=== PATIENT | female | born 1960 | race Caucasian/White ===

== ENCOUNTER → 2016-11-06 | Outpatient (CLI) | payer OTHER ==
[~2016-11-06] MED LIST: ADVI200T PO; ARTISOL10 OU; ATOR1TAB19 PO; AUGM875T27 PO; BACT800T5 PO; FISH1000 PO; TYLE1TAB5 PO; VITA10002 PO; VITA400C29 PO
--- NOTE | 2016-11-07 02:07 | REP ---
Clinical: Neck pain with recent trauma/injury. Technique: AP, lateral, flexion/extension, bilateral oblique, and open-mouth views of the cervical spine. Comparison: None. Findings: Moderate/advanced degenerative disc osteophyte complexes primarily involving C6-7, C5-6, and C4-5 include osteophytosis, endplate sclerosis with disc space narrowing, and hypertrophic facet changes. There is evidence for 2.5 mm anterolisthesis at the C7-T1 level which appears relatively unchanged on flexion and extension views. No acute fracture or compression injury identified. Open mouth view demonstrates normal C1-C2 articulation and odontoid process. Prevertebral soft tissues appear normal. Spinous processes appear intact. Impression: Moderate to advanced degenerative disc osteophyte complexes as noted above including grade 1 anterolisthesis at the C7-T1 level. Signed by Fran Espinal MD 11/07/2016 01:58 A
== END ==
LOC: M WUC 16:16
PROVIDERS: ATTEND Physician Assistant Medical
DX: M25.78 Osteophyte, vertebrae (principal); M50.93 Cervical disc disorder, unspecified, cervicothoracic region

== ENCOUNTER → 2016-11-17 | Outpatient (CLI) | payer BC, OTHER ==
--- NOTE | 2016-11-17 11:07 | REP ---
CT BRAIN WITHOUT CONTRAST: 11/17/2016. Clinical history: Head trauma 11/06/2016. Evaluate for intracranial hemorrhage or other. Technique: Noncontrast soft tissue and bone windows were provided. Findings: There are no comparison studies. The lateral ventricles are midline and symmetric without dilatation or displacement. Third and fourth ventricles are also unremarkable. Basal ganglia symmetric and normal. White matter tracts preserved. The cortical stripe was unremarkable. There is no extra-axial hemorrhage or intraparenchymal bleed. No vascular territory infarct, mass or mass effect. Brainstem unremarkable. Cerebellum with minimal atrophy. Basal cisterns intact. Mastoids and visualized sinuses were clear. The calvarium and skull base are without fracture. I do not see focal bone lesion. Some minor asymmetric soft tissue thickening right posterior occiput compared to left which suggests subgaleal hematoma. Impression: 1. There is no intracranial hemorrhage, edema, mass or acute infarct. No fracture of the skull base or calvarium and the sinuses and mastoids are clear.2. Minor swelling of the soft tissues right-sided posterior occipital region, likely a small subgaleal scalp hematoma. Signed by Satish Fernandes MD 11/17/2016 04:41 P
== END ==
LOC: M RAD 08:15
PROVIDERS: ATTEND Physician Assistant Medical
DX: S09.90XD Unspecified injury of head, subsequent encounter (principal); X58.XXXA Exposure to other specified factors, initial encounter; Y92.9 Unspecified place or not applicable; Y93.9 Activity, unspecified; Y99.9 Unspecified external cause status

== ENCOUNTER → 2016-12-21 | Outpatient (REF) | payer OTHER ==
[2016-12-21 10:57] LABS: MEAN CORPUSCULAR HEMOGLOBIN 32.5 pg (27.0-33.0); MEAN CORPUSCULAR HGB CONC 34.3 g/dl (32.0-36.5); MEAN CORPUSCULAR VOLUME 94.7 fl (80.0-96.0); WHITE BLOOD COUNT 2.9 K/mm3 (4.0-10.0)
[2016-12-21 11:26] LABS: BASOPHILS 3 % (0-4); EOSINOPHILS 1 % (0-5)
[2016-12-21 11:28] LABS: ALBUMIN 4.3 GM/DL (3.2-5.2); ALBUMIN/GLOBULIN RATIO 1.39 (1.00-1.93); ALKALINE PHOSPHATASE 58 U/L (45-117); ALT/SGPT 29 U/L (12-78); ANION GAP 8 MEQ/L (8-16); AST/SGOT 18 U/L (15-37); BILIRUBIN,TOTAL 0.4 MG/DL (0.2-1.0); BLOOD UREA NITROGEN 11 MG/DL (7-18); CALCIUM LEVEL 8.9 MG/DL (8.5-10.1); CARBON DIOXIDE LEVEL 30 MEQ/L (21-32); CHLORIDE LEVEL 105 MEQ/L (98-107); CHOLESTEROL LEVEL 174 MG/DL (<200); CREATININE FOR GFR 0.72 MG/DL (0.55-1.02); FREE T4 0.86 NG/DL (0.76-1.46); GLOMERULAR FILTRATION RATE > 60.0 (>51); GLUCOSE, FASTING 90 MG/DL (70-105); POTASSIUM SERUM 4.3 MEQ/L (3.5-5.1); SODIUM LEVEL 143 MEQ/L (136-145); TOTAL PROTEIN 7.4 GM/DL (6.4-8.2); TRIGLYCERIDES LEVEL 89 MG/DL (<150)
[2016-12-22 09:29] LABS: THYROID PEROXIDASE ANTIBODY < 28.0 U/ML (<60.0)
== END ==
LOC: M SFHCPLAZ 08:38
PROVIDERS: ATTEND Family Medicine
DX: D72.819 Decreased white blood cell count, unspecified (principal); E55.9 Vitamin D deficiency, unspecified; E78.5 Hyperlipidemia, unspecified

== ENCOUNTER → 2017-01-11 | Outpatient (CLI) | payer BC, OTHER ==
--- NOTE | 2017-01-15 10:53 | DEXA ---
AP SPINE L1 - L4 1.219 0.2 0.9 LT FEMUR TOTAL 0.975 -0.3 0.3 RT FEMUR TOTAL 1.017 0.1 0.6 TOTAL BODY TOTAL OTHER DUAL FEMUR FRAX* ASSESSMENT Risk factors: None. 10 year probability of fracture Major osteoporotic fracture 7.1 % Hip fracture 0.5 % COMMENTS: Normal bone densitometry of the spine. Normal bone densitometry of the right hip. There is low bone density of the left hip, low bone density based on femoral neck T score -1.2 left. There is degenerative change in the spine which may artificially elevate the BMD. The increased density of the spine does represent a significant change since . The increased density of the left hip does represent a significant change since 11/05/2013. The increased density of the right hip does represent a significant change. The density of the spine has decreased 4.0% since the initial exam on 2008. The spine density has increased 10.3% since the most recent exam on 11/05/2013. The density of the left hip has decreased 3.9% since the initial exam on 2008. The density of the left hip has increased 6.3% since the most recent exam on . The density of the right hip has decreased 6.1% since the initial exam on 2008. The density of the right hip has increased 5.1% since the most recent exam on . FOLLOW-UP: Recommendation for the next bone density exam: 2 years. MARIUSZ
== END ==
LOC: M WHC 11:25
PROVIDERS: ATTEND Family Medicine
DX: M85.80 Other specified disorders of bone density and structure, unspecified site (principal)

== ENCOUNTER → 2017-12-24 | Outpatient (REF) | payer BC ==
[2017-12-24 13:21] LABS: BASO % 0.9 % (0.0-1.0); EOS # 0.1 10^3/uL (0.0-0.50); EOS % 1.4 % (0.0-3.0); HEMOGLOBIN 13.3 g/dl (12.0-16.0); IMMATURE GRANULOCYTE % 0.2 % (0-3.0); LYMPH # 1.8 10^3/uL (1.5-4.5); LYMPH % 39.9 % (24.0-44.0); MEAN CORPUSCULAR HEMOGLOBIN 32.8 pg (27.0-33.0); MEAN CORPUSCULAR HGB CONC 34.1 g/dl (32.0-36.5); MEAN CORPUSCULAR VOLUME 96.1 fl (80.0-96.0); MONO # 0.2 10^3/uL (0.0-0.8); MONO % 5.2 % (0.0-5.0); NEUTROPHILS # 2.3 10^3/uL (1.8-7.7); NEUTROPHILS % 52.4 % (36.0-66.0); PLATELET COUNT, AUTOMATED 139 10^3/uL (150-450); RED BLOOD COUNT 4.06 10^6/uL (4.00-5.40); RED CELL DISTRIBUTION WIDTH 12.2 % (11.5-14.5); WHITE BLOOD COUNT 4.4 10^3/uL (4.0-10.0)
[2017-12-24 14:08] LABS: ALBUMIN 4.3 GM/DL (3.2-5.2); ALBUMIN/GLOBULIN RATIO 1.34 (1.00-1.93); ALKALINE PHOSPHATASE 67 U/L (45-117); ALT/SGPT 25 U/L (12-78); ANION GAP 6 MEQ/L (8-16); AST/SGOT 21 U/L (7-37); BILIRUBIN,TOTAL 0.4 MG/DL (0.2-1.0); BLOOD UREA NITROGEN 13 MG/DL (7-18); C REACTIVE PROTEIN QUANTITATIV < 0.30 MG/DL (0.00-0.30); CARBON DIOXIDE LEVEL 30 MEQ/L (21-32); CHLORIDE LEVEL 104 MEQ/L (98-107); CHOLESTEROL LEVEL 203 MG/DL (<200); CHOLESTEROL RISK RATIO 2.819 (<5); CPK CREATINE PHOSPHOKINASE 190 U/L (26-192); CREATININE FOR GFR 0.64 MG/DL (0.55-1.30); GLOMERULAR FILTRATION RATE > 60.0 (>51); GLUCOSE, FASTING 85 MG/DL (70-100); HDL CHOLESTEROL 72 MG/DL (>40); LDL CHOLESTEROL 102.2 MG/DL (<100); NON-HDL-C 131 MG/DL; POTASSIUM SERUM 4.2 MEQ/L (3.5-5.1); SODIUM LEVEL 140 MEQ/L (136-145); TOTAL PROTEIN 7.5 GM/DL (6.4-8.2); TRIGLYCERIDES LEVEL 144 MG/DL (<150)
[2017-12-24 14:09] LABS: PTH INTACT 58.4 PG/ML (18.5-88.0); TOTAL 25(OH) VITAMIN D 39.4 NG/ML (30.0-100.0)
== END ==
LOC: M SFHCPLAZ 09:19
DX: E55.9 Vitamin D deficiency, unspecified (principal); E78.5 Hyperlipidemia, unspecified; D72.819 Decreased white blood cell count, unspecified
CPT/HCPCS: 82306; 82550

== ENCOUNTER → 2019-10-13 | Outpatient (REF) | payer BC ==
[~2019-10-13] MED LIST changes: -AUGM875T27 PO; +AUGM875T28 PO; +CYAN100049 PO; +VITA-110 PO; -VITA10002 PO; -VITA400C29 PO
[2019-10-13 12:23] LABS: BASO % 1.1 % (0.0-1.0); EOS # 0.1 10^3/uL (0.0-0.5); EOS % 1.6 % (0.0-3.0); HEMATOCRIT 42.4 % (36.0-47.0); HEMOGLOBIN 13.9 g/dl (12.0-15.5); LYMPH # 1.8 10^3/uL (1.5-5.0); LYMPH % 47.3 % (24.0-44.0); MEAN CORPUSCULAR HEMOGLOBIN 32.5 pg (27.0-33.0); MEAN CORPUSCULAR HGB CONC 32.8 g/dl (32.0-36.5); MEAN CORPUSCULAR VOLUME 99.1 fl (80.0-96.0); MONO # 0.2 10^3/uL (0.0-0.8); MONO % 5.6 % (0.0-5.0); NEUTROPHILS # 1.6 10^3/uL (1.5-8.5); NEUTROPHILS % 43.6 % (36.0-66.0); PLATELET COUNT, AUTOMATED 168 10^3/uL (150-450); RED BLOOD COUNT 4.28 10^6/uL (4.00-5.40); WHITE BLOOD COUNT 3.7 10^3/uL (4.0-10.0)
[2019-10-13 12:43] LABS: HEMOGLOBIN A1c 5.4 %
[2019-10-13 12:48] LABS: ALBUMIN 4.2 GM/DL (3.2-5.2); ALT/SGPT 28 U/L (12-78); BILIRUBIN,TOTAL 0.5 MG/DL (0.2-1.0); BLOOD UREA NITROGEN 11 MG/DL (7-18); CALCIUM LEVEL 9.1 MG/DL (8.8-10.2); CARBON DIOXIDE LEVEL 26 MEQ/L (21-32); CHLORIDE LEVEL 107 MEQ/L (98-107); CHOLESTEROL LEVEL 291 MG/DL (<200); CHOLESTEROL RISK RATIO 4.546 (<5); CREATININE FOR GFR 0.63 MG/DL (0.55-1.30); FREE T4 0.79 NG/DL (0.76-1.46); GLOMERULAR FILTRATION RATE > 60.0 (>45); GLUCOSE, FASTING 97 MG/DL (70-100); HDL CHOLESTEROL 64 MG/DL (>40); LDL CHOLESTEROL 199 MG/DL (<100); NON-HDL-C 227 MG/DL; POTASSIUM SERUM 4.3 MEQ/L (3.5-5.1); SODIUM LEVEL 141 MEQ/L (136-145); TOTAL PROTEIN 7.6 GM/DL (6.4-8.2); TRIGLYCERIDES LEVEL 142 MG/DL (<150)
[2019-10-13 13:20] LABS: TOTAL 25(OH) VITAMIN D 32.8 NG/ML (30.0-100.0)
== END ==
LOC: M SFHCPLAZ 09:05
PROVIDERS: ATTEND Nurse Practitioner Family
DX: D72.819 Decreased white blood cell count, unspecified (principal); E78.5 Hyperlipidemia, unspecified; E55.9 Vitamin D deficiency, unspecified

== ENCOUNTER → 2019-12-11 | Outpatient (REF) | payer BC | LOC: M LAB REF 11:20 | PROVIDERS: ATTEND Physician Assistant | DX: N39.0 Urinary tract infection, site not specified (principal) ==

== ENCOUNTER → 2020-03-18 | Outpatient (REF) | payer BC ==
[2020-03-18 13:56] LABS: BASO % 0.8 % (0.0-1.0); HEMATOCRIT 41.5 % (36.0-47.0); HEMOGLOBIN 13.9 g/dl (12.0-15.5); LYMPH # 1.8 10^3/uL (1.5-5.0); LYMPH % 45.8 % (24.0-44.0); MEAN CORPUSCULAR HEMOGLOBIN 32.2 pg (27.0-33.0); MEAN CORPUSCULAR HGB CONC 33.5 g/dl (32.0-36.5); MEAN CORPUSCULAR VOLUME 96.1 fl (80.0-96.0); MONO # 0.3 10^3/uL (0.0-0.8); MONO % 7.3 % (0.0-5.0); NEUTROPHILS # 1.7 10^3/uL (1.5-8.5); NEUTROPHILS % 44.8 % (36.0-66.0); PLATELET COUNT, AUTOMATED 171 10^3/uL (150-450); RED BLOOD COUNT 4.32 10^6/uL (4.00-5.40); WHITE BLOOD COUNT 3.8 10^3/uL (4.0-10.0)
[2020-03-18 14:20] LABS: ALBUMIN 4.4 GM/DL (3.2-5.2); ALT/SGPT 29 U/L (12-78); BILIRUBIN,TOTAL 0.5 MG/DL (0.2-1.0); BLOOD UREA NITROGEN 15 MG/DL (7-18); C REACTIVE PROTEIN QUANTITATIV < 0.30 MG/DL (0.00-0.30); CALCIUM LEVEL 9.4 MG/DL (8.8-10.2); CARBON DIOXIDE LEVEL 28 MEQ/L (21-32); CHLORIDE LEVEL 105 MEQ/L (98-107); CHOLESTEROL LEVEL 239 MG/DL (<200); CHOLESTEROL RISK RATIO 3.676 (<5); CPK CREATINE PHOSPHOKINASE 141 U/L (26-192); CREATININE FOR GFR 0.73 MG/DL (0.55-1.30); GLOMERULAR FILTRATION RATE > 60.0 (>45); GLUCOSE, FASTING 95 MG/DL (70-100); HDL CHOLESTEROL 65 MG/DL (>40); LDL CHOLESTEROL 149 MG/DL (<100); NON-HDL-C 174 MG/DL; POTASSIUM SERUM 4.1 MEQ/L (3.5-5.1); SODIUM LEVEL 141 MEQ/L (136-145); TOTAL PROTEIN 7.4 GM/DL (6.4-8.2); TRIGLYCERIDES LEVEL 126 MG/DL (<150)
[2020-03-18 14:43] LABS: HEMOGLOBIN A1c 5.6 %
[2020-03-22 12:44] LABS: ALBUMIN 4.89 GM/DL (3.29-5.55); ALBUMIN % 66.1 % (55.8-66.1); ALPHA-1-GLOBULIN % 2.7 % (2.9-4.9); ALPHA-2-GLOBULINS 0.56 GM/DL (0.42-0.99); ALPHA-2-GLOBULINS % 7.6 % (7.1-11.8); BETA-1-GLOBULINS 0.38 GM/DL (0.28-0.60); BETA-1-GLOBULINS % 5.2 % (4.7-7.2); BETA-2-GLOBULINS 0.35 GM/DL (0.19-0.55); BETA-2-GLOBULINS % 4.7 % (3.2-6.5); GAMMA GLOBULIN % 13.7 % (11.1-18.8); GAMMA GLOBULINS 1.01 GM/DL (0.65-1.58)
== END ==
LOC: M SFHCPLAZ 09:50
PROVIDERS: ATTEND Family Medicine
DX: D72.819 Decreased white blood cell count, unspecified (principal); E78.5 Hyperlipidemia, unspecified

== ENCOUNTER → 2021-03-24 | Outpatient (REF) | payer BC | LOC: M SFHCPLAZ 11:09 | PROVIDERS: ATTEND Family Medicine | DX: E55.9 Vitamin D deficiency, unspecified (principal); E78.5 Hyperlipidemia, unspecified; D72.819 Decreased white blood cell count, unspecified; R73.01 Impaired fasting glucose ==

== ENCOUNTER → 2021-03-30 | Outpatient (CLI) | payer BC ==
[2021-03-30 08:52] LABS: BASO % 0.9 % (0.0-1.0); EOS % 1.1 % (0.0-3.0); HEMATOCRIT 42.9 % (36.0-47.0); HEMOGLOBIN 14.1 g/dl (12.0-15.5); LYMPH # 1.8 10^3/uL (1.5-5.0); MEAN CORPUSCULAR HEMOGLOBIN 31.9 pg (27.0-33.0); MEAN CORPUSCULAR HGB CONC 32.9 g/dl (32.0-36.5); MEAN CORPUSCULAR VOLUME 97.1 fl (80.0-96.0); MONO # 0.2 10^3/uL (0.0-0.8); MONO % 6.6 % (2.0-8.0); NEUTROPHILS # 1.5 10^3/uL (1.5-8.5); NEUTROPHILS % 41.4 % (36.0-66.0); PLATELET COUNT, AUTOMATED 161 10^3/uL (150-450); RED BLOOD COUNT 4.42 10^6/uL (4.00-5.40); WHITE BLOOD COUNT 3.5 10^3/uL (4.0-10.0)
[2021-03-30 09:26] LABS: ALBUMIN 4.3 GM/DL (3.2-5.2); ALT/SGPT 36 U/L (12-78); BILIRUBIN,TOTAL 0.6 MG/DL (0.2-1.0); BLOOD UREA NITROGEN 14 MG/DL (7-18); CALCIUM LEVEL 9.3 MG/DL (8.8-10.2); CARBON DIOXIDE LEVEL 30 MEQ/L (21-32); CHLORIDE LEVEL 107 MEQ/L (98-107); CHOLESTEROL LEVEL 183 MG/DL (<200); CHOLESTEROL RISK RATIO 2.772 (<5); CREATININE FOR GFR 0.62 MG/DL (0.55-1.30); GLOMERULAR FILTRATION RATE > 60.0 (>45); GLUCOSE, FASTING 93 MG/DL (70-100); HDL CHOLESTEROL 66 MG/DL (>40); LDL CHOLESTEROL 96 MG/DL (<100); NON-HDL-C 117 MG/DL; SODIUM LEVEL 141 MEQ/L (136-145); TOTAL PROTEIN 7.7 GM/DL (6.4-8.2); TRIGLYCERIDES LEVEL 103 MG/DL (<150)
[2021-03-30 09:28] LABS: HEMOGLOBIN A1c 5.4 %
[2021-03-30 09:33] LABS: TOTAL 25(OH) VITAMIN D 49.8 NG/ML (30.0-100.0)
[2021-03-30 09:34] LABS: PTH INTACT 59.8 PG/ML (18.5-88.0)
[2021-03-31 19:06] LABS: INSULIN LEVEL 10.2 uIU/mL (2.6-24.9)
== END ==
LOC: M LAB 08:06
PROVIDERS: ATTEND Family Medicine
DX: D72.819 Decreased white blood cell count, unspecified (principal); E55.9 Vitamin D deficiency, unspecified; R73.01 Impaired fasting glucose; E78.5 Hyperlipidemia, unspecified

== ENCOUNTER → 2021-09-19 | Outpatient (CLI) | payer BC ==
--- NOTE | 2021-09-19 10:57 | DEXAMM ---
INDICATION: OSTEOPOROSIS. COMPARISON: 01/11/2017 as well as other prior exams. TECHNIQUE: Bone density was measured using dual-energy x-ray absorptiometry (DEXA). FINDINGS: AP SPINE L1-L4 BMD 1.227 g/cm2 Young Adult T-Score 0.3 Age Matched Z-Score 1.7. LT FEMUR, TOTAL BMD 0.968 g/cm2 Young Adult T-Score -0.3 Age Matched Z-Score 0.8. LT NECK BMD 0.886 g/cm2 Young Adult T-Score -1.1 Age Matched Z-Score 0.3. RT FEMUR, TOTAL BMD 1.004 g/cm2 Young Adult T-Score 0.0 Age Matched Z-Score 1.1. RT NECK BMD 0.908 g/cm2 Young Adult T-Score -0.9 Age Matched Z-Score 0.5. IMPRESSION: There is normal bone density of the spine. There is low bone density of the left hip. There is normal bone density of the right hip. The density of the spine has decreased 3.4% since the initial exam on 01/14/2009. The density of the spine increased 0.7% since most recent exam on 01/11/2017. The density of the left hip has decreased 4.6% since initial exam on 01/14/2009. The density of the left hip has decreased 0.7% since most recent exam on 01/11/2017. The density of the right hip has decreased 7.3% since the initial exam on 01/14/2009. The density of the right hip has decreased 1.3% since the most recent exam on 01/11/2017. FOLLOW-UP: Recommendation for the next bone density exam: 2 years. <Electronically signed by Kyle Carver > 09/19/21 [id number]
== END ==
LOC: M WHC 08:27
PROVIDERS: ATTEND Family Medicine
DX: M85.852 Other specified disorders of bone density and structure, left thigh (principal)

== ENCOUNTER → 2021-09-20 | Outpatient (CLI) | payer BC ==
[2021-09-20 09:50] LABS: BASO # 0.1 10^3/uL (0.0-0.2); BASO % 1.4 % (0.0-1.0); EOS # 0.1 10^3/uL (0.0-0.5); EOS % 1.6 % (0.0-3.0); HEMATOCRIT 38.8 % (36.0-47.0); LYMPH # 2.1 10^3/uL (1.5-5.0); LYMPH % 57.3 % (24.0-44.0); MEAN CORPUSCULAR HEMOGLOBIN 32.2 pg (27.0-33.0); MEAN CORPUSCULAR HGB CONC 33.5 g/dl (32.0-36.5); MONO # 0.2 10^3/uL (0.0-0.8); NEUTROPHILS # 1.2 10^3/uL (1.5-8.5); NEUTROPHILS % 33.4 % (36.0-66.0); PLATELET COUNT, AUTOMATED 173 10^3/uL (150-450); RED BLOOD COUNT 4.04 10^6/uL (4.00-5.40); WHITE BLOOD COUNT 3.7 10^3/uL (4.0-10.0)
[2021-09-20 10:26] LABS: ALBUMIN 3.9 GM/DL (3.2-5.2); BLOOD UREA NITROGEN 14 MG/DL (7-18); CALCIUM LEVEL 9.1 MG/DL (8.8-10.2); CARBON DIOXIDE LEVEL 29 MEQ/L (21-32); CHLORIDE LEVEL 105 MEQ/L (98-107); CHOLESTEROL LEVEL 185 MG/DL (<200); CHOLESTEROL RISK RATIO 3.189 (<5); FREE T4 0.85 NG/DL (0.76-1.46); GLOMERULAR FILTRATION RATE > 60.0 (>45); GLUCOSE, FASTING 103 MG/DL (70-100); HDL CHOLESTEROL 58 MG/DL (>40); LDL CHOLESTEROL 108 MG/DL (<100); NON-HDL-C 127 MG/DL; PHOSPHORUS LEVEL 3.7 MG/DL (2.5-4.9); POTASSIUM SERUM 4.1 MEQ/L (3.5-5.1); SODIUM LEVEL 140 MEQ/L (136-145); TRIGLYCERIDES LEVEL 96 MG/DL (<150)
[2021-09-20 10:28] LABS: PTH INTACT 48.3 PG/ML (18.5-88.0); TOTAL 25(OH) VITAMIN D 47.4 NG/ML (30.0-100.0); VITAMIN B12 LEVEL 594 PG/ML (247-911)
== END ==
LOC: M WUC 08:06
PROVIDERS: ATTEND Family Medicine
DX: M85.80 Other specified disorders of bone density and structure, unspecified site (principal); E78.5 Hyperlipidemia, unspecified; E55.9 Vitamin D deficiency, unspecified; D72.819 Decreased white blood cell count, unspecified; R73.01 Impaired fasting glucose

== ENCOUNTER → 2023-01-10 | Outpatient (CLI) | payer BC, MEDICARE ==
[2023-01-10 10:02] LABS: ALBUMIN 4.5 G/DL (3.2-5.2); ALKALINE PHOSPHATASE 58 U/L (46-116); ALT/SGPT 28 U/L (7.0-40); AST/SGOT 25 U/L (<34); BILIRUBIN,TOTAL 0.9 MG/DL (0.3-1.2); BLOOD UREA NITROGEN 15 MG/DL (9-23); CALCIUM LEVEL 9.4 MG/DL (8.3-10.6); CARBON DIOXIDE LEVEL 31 MMOL/L (20-31); CHLORIDE LEVEL 102 MMOL/L (98-107); CHOLESTEROL LEVEL 234 MG/DL (<200); CHOLESTEROL RISK RATIO 3.06 (<5); GLOMERULAR FILTRATION RATE > 60.0 (>45); GLUCOSE, FASTING 97 MG/DL (74-106); HDL CHOLESTEROL 76.4 MG/DL (>40); LDL CHOLESTEROL 142.4 MG/DL (<100); NON-HDL-C 157.6 MG/DL; SODIUM LEVEL 140 MMOL/L (136-145); TOTAL PROTEIN 7.5 G/DL (5.7-8.2); TRIGLYCERIDES LEVEL 76 MG/DL (<150)
[2023-01-10 10:22] LABS: HEMOGLOBIN A1c 5.4 % (4.0-6.0)
[2023-01-10 18:19] LABS: CREATININE, URINE 159.1 MG/DL; MALB URINE SIEMENS < 3.0 MG/L; MAU/CREAT RATIO 1.8 MCG/MG (0.0-30.0)
[2023-01-11 12:08] LABS: INSULIN LEVEL 8.5 uIU/mL (2.6-24.9); TISSUE TRANSGLUTAMINASE IgA <2 U/mL (0-3)
== END ==
LOC: M WUC 08:04
PROVIDERS: ATTEND Family Medicine
DX: R73.01 Impaired fasting glucose (principal); E78.5 Hyperlipidemia, unspecified; M85.80 Other specified disorders of bone density and structure, unspecified site

== ENCOUNTER → 2023-09-19 | Day surgery (SDC) | payer MEDICARE ==
[~2023-09-19] VITALS: Ht 165.1 cm; Wt 69.4 kg
[~2023-09-19] MED LIST changes: +CO Q100C10 PO; +D200CAP3 PO; +EZET10TA21 PO; +GLYCOPYRROLATE INJ 0.2 MG/ML 2 ML VIAL As Ordered ONE; +KP F1200 PO; +LIDOCAINE 2% 100MG/5ML SDV (FOR ANES.) As Ordered ONE; +MAGN400C2 PO; +NS 1,000 ML IV ONE; +ROSU20TA61 PO; +propofoL 200 MG/20 ML VIAL As Ordered ONE
[2023-09-19 08:46] VITALS: TEMP 97.5
[2023-09-19 09:08] VITALS: BP 102/61; O2SAT 96
== END | disposition home or self-care (01) ==
LOC: M OPP 06:54
PROVIDERS: ATTEND Internal Medicine Gastroenterology
DX: Z12.11 Encounter for screening for malignant neoplasm of colon (principal); K64.0 First degree hemorrhoids; K31.89 Other diseases of stomach and duodenum; R12 Heartburn; Z87.891 Personal history of nicotine dependence; Z79.02 Long term (current) use of antithrombotics/antiplatelets; Z79.899 Other long term (current) drug therapy
CPT/HCPCS: 43239; 88305; G0121

== ENCOUNTER → 2024-09-03 | Outpatient (CLI) | payer MEDICARE, OTHER ==
[~2024-09-03] MED LIST changes: -GLYCOPYRROLATE INJ 0.2 MG/ML 2 ML VIAL As Ordered ONE; -LIDOCAINE 2% 100MG/5ML SDV (FOR ANES.) As Ordered ONE; -NS 1,000 ML IV ONE; -ROSU20TA61 PO; +ROSU20TA86 PO; -propofoL 200 MG/20 ML VIAL As Ordered ONE
[2024-09-03 08:36] LABS: BASO % 0.9 % (0.0-1.0); EOS % 1.2 % (0.0-3.0); HEMATOCRIT 42.9 % (36.0-47.0); HEMOGLOBIN 14.7 g/dl (12.0-15.5); LYMPH # 1.8 10^3/uL (1.5-5.0); LYMPH % 53.6 % (24.0-44.0); MEAN CORPUSCULAR HEMOGLOBIN 32.9 pg (27.0-33.0); MEAN CORPUSCULAR HGB CONC 34.3 g/dl (32.0-36.5); MONO # 0.2 10^3/uL (0.0-0.8); MONO % 6.8 % (2.0-8.0); NEUTROPHILS # 1.3 10^3/uL (1.5-8.5); NEUTROPHILS % 37.5 % (36.0-66.0); PLATELET COUNT, AUTOMATED 165 10^3/uL (150-450); RED BLOOD COUNT 4.47 10^6/uL (4.00-5.40); WHITE BLOOD COUNT 3.4 10^3/uL (4.0-10.0)
[2024-09-03 08:48] LABS: HEMOGLOBIN A1c 5.5 % (4.0-6.0)
[2024-09-03 09:25] LABS: ALBUMIN 4.3 G/DL (3.2-5.2); ALKALINE PHOSPHATASE 55 U/L (35-104); ALT/SGPT 29 U/L (7.0-40); AST/SGOT 20 U/L (<34); BILIRUBIN,TOTAL 0.7 MG/DL (0.3-1.2); BLOOD UREA NITROGEN 11 MG/DL (9-23); CALCIUM LEVEL 9.6 MG/DL (8.3-10.6); CARBON DIOXIDE LEVEL 30 MMOL/L (20-31); CHLORIDE LEVEL 106 MMOL/L (98-107); CHOLESTEROL LEVEL 164 MG/DL (<200); CHOLESTEROL RISK RATIO 2.36 (<5); CREATININE FOR GFR 0.63 MG/DL (0.55-1.30); GLOMERULAR FILTRATION RATE > 60.0 (>45); GLUCOSE, FASTING 92 MG/DL (74-106); HDL CHOLESTEROL 69.4 MG/DL (>40); LDL CHOLESTEROL 77.4 MG/DL (<100); NON-HDL-C 94.6 MG/DL; SODIUM LEVEL 142 MMOL/L (136-145); TOTAL PROTEIN 7.3 G/DL (5.7-8.2); TRIGLYCERIDES LEVEL 86 MG/DL (<150)
[2024-09-03 09:29] LABS: PTH INTACT 50.9 PG/ML (18.5-88.0)
[2024-09-03 09:33] LABS: THYROID STIMULATING HORMONE 2.665 uIU/ML (0.55-4.78); TOTAL 25(OH) VITAMIN D 59.6 NG/ML (20.0-100.0)
[2024-09-03 09:34] LABS: FREE T4 0.93 NG/DL (0.89-1.76)
== END ==
LOC: M LAB 07:01
PROVIDERS: ATTEND Family Medicine
DX: E78.5 Hyperlipidemia, unspecified (principal); D72.819 Decreased white blood cell count, unspecified; R73.01 Impaired fasting glucose; E55.9 Vitamin D deficiency, unspecified

== ENCOUNTER → 2025-09-02 | Outpatient (CLI) | payer MEDICARE ==
[~2025-09-02] MED LIST changes: -EZET10TA21 PO; +EZET10TA57 PO
[2025-09-02 12:57] LABS: BASO # 0.0 10^3/uL (0.0-0.2); BASO % 0.9 % (0.0-1.0); EOS # 0.1 10^3/uL (0.0-0.5); EOS % 1.1 % (0.0-3.0); LYMPH # 1.9 10^3/uL (1.5-5.0); LYMPH % 42.1 % (24.0-44.0); MONO # 0.3 10^3/uL (0.0-0.8); MONO % 5.9 % (2.0-8.0); NEUTROPHILS # 2.3 10^3/uL (1.5-8.5); NEUTROPHILS % 49.8 % (36.0-66.0); PLATELET COUNT, AUTOMATED 166 10^3/uL (150-450)
[2025-09-02 13:24] LABS: ALT/SGPT 23 U/L (7.0-40); AST/SGOT 21 U/L (<34); CALCIUM LEVEL 9.1 MG/DL (8.3-10.6); CARBON DIOXIDE LEVEL 29 MMOL/L (20-31); CHLORIDE LEVEL 104 MMOL/L (98-107); CHOLESTEROL LEVEL 186 MG/DL (<200); CHOLESTEROL RISK RATIO 2.97 (<5); CREATININE FOR GFR 0.68 MG/DL (0.55-1.30); GLOMERULAR FILTRATION RATE > 90.0 (>45); LDL CHOLESTEROL 103.3 MG/DL (<100); NON-HDL-C 123.5 MG/DL; POTASSIUM SERUM 3.9 MMOL/L (3.5-5.1); PTH INTACT 40.7 PG/ML (18.5-88.0); SODIUM LEVEL 143 MMOL/L (136-145); TRIGLYCERIDES LEVEL 101 MG/DL (<150)
[2025-09-02 13:25] LABS: FREE T4 0.98 NG/DL (0.89-1.76); VITAMIN B12 LEVEL 613 PG/ML (211-911)
[2025-09-02 13:26] LABS: TOTAL 25(OH) VITAMIN D 51.0 NG/ML (20.0-100.0)
[2025-09-02 14:02] LABS: ESTIMATED AVERAGE GLUCOSE 111.0 MG/DL (60-110)
[2025-09-04 02:12] LABS: PROTEIN, TOTAL SO 7.0 g/dL (6.1-8.1)
== END ==
LOC: M WUC 08:16
PROVIDERS: ATTEND Family Medicine
DX: D72.819 Decreased white blood cell count, unspecified (principal); R73.01 Impaired fasting glucose; E78.5 Hyperlipidemia, unspecified; E55.9 Vitamin D deficiency, unspecified